=== PATIENT | female | born 2000 | race African-American/Black ===

== ENCOUNTER 2020-05-14 12:20 | Emergency (ER) | payer OTHER ==
[~2020-05-14] VITALS: Ht 157.5 cm; Wt 52.2 kg
--- NOTE | ~2020-05-14 | EMS ---
[facility] [address] [place] [address] EMS Patient Care Report Name: CANDIEMATTHEW Room #: DEP ZAYNAB Biswas#: [id number] Admission: 05/14/20 Attend Phys: Discharge: 05/14/20 Date of : [birth year] Report #: [id number] THIS REPORT FOR: //name// Report Transmitted: 05/14/2020 13:53 EMS Care Summary [facility] Incident [id number] @ 05/14/2020 11:43 Incident Location [address] [place] [address] Patient REGINA SCHREIBER Female, 19 Years 2000 Patient Address [address] [place] [id number] Patient History Asthma,Anemia, Patient Allergies Other drug allergy, Patient Medications None Reported, Chief Complaint knee pain after a fall Disposition Transported No Lights/[place] [facility] Reason Falls Transported To [facility] Narrative Pt is found sitting on the floor in the backroom of [employer] in no acute distress and in care of FD. Pt reports that she was 3-4 rungs up on the back stockroom ladder (approx 3 ft) putting away shoes when she slipped and fell [facility] [address] [place] [address] EMS Patient Care Report Name: MATTHEW SCHREIBER Room #: DEP True#: [id number] Admission: 05/14/20 Attend Phys: Discharge: 05/14/20 Date of : [birth year] Report #: [id number] backward. Pt c/o right knee pain and neck pain. Pt denies loss of consciousness and is alert and fully oriented. Pt denies use of blood thinners. Pt does state that she has improvement in knee pain due to ice pack. Pt is assisted to standing and is seated on cot where she is secured without incident. Pt is sheet lifted to ER bed without incident and report to RN. Initial Vitals @11:53P: 100,R: 18,BP: 113/82,Pain: 7/10,GCS: 15,SpO2: 100,Revised Trauma: 12, Assessments @12:05MENTAL:Person Oriented,Time Oriented,Place Oriented,Event Oriented,SKIN:HEENT:Head/Face: No Abnormalities,Neck/Airway: No Abnormalities,LUNG SOUNDS:General: No Abnormalities,ABDOMEN:General: No Abnormalities,PELVIS//GI:No Abnormalities,EXTREMITIES:Right Leg: Other,Left Arm: No Abnormalities,Right Arm: No Abnormalities,Left Leg: No Abnormalities,PULSE:NEURO:No Abnormalities, Impression Injury of Lower Leg Procedures @11:52Spinal Motion RestrictionResponse: UnchangedSucceeded@12:07Ice PackResponse: ImprovedSucceeded Timeline 11:40,Call Received 11:40,Psap Call 11:43,Dispatched 11:43,En Route 11:49,On Scene 11:51,At Patient 11:52,Spinal Motion Restriction,Response: UnchangedSucceeded, 11:53,BP: 113/82 M,PULSE: 100,RR: 18 R,SPO2: 100 Ox,ETCO2: ,BG: ,PAIN: 7,GCS: 15, 12:04,Depart Scene 12:07,Ice Pack,Response: ImprovedSucceeded, 12:15,At Destination 12:27,Call Closed Disclaimer [email or web address] Copyright 2020 [employer] This EMS Care Summary contains data elements from the applicable legal record (which may be displayed differently). It is designed to provide pertinent information for the following purposes: continuity of care, clinical quality, and state data reporting. The complete legal record is available to ED staff [address] [address] EMS Patient Care Report Name: MATTHEW SCHREIBER Room #: ANGEL Biswas#: [id number] Admission: 05/14/20 Attend Phys: Discharge: 05/14/20 Date of : [birth year] Report #: [id number] and administrators of the receiving hospital in ES's Patient Tracker. All data is provided "as is."
[2020-05-14] MEDS ORDERED: TRAMADOL 50 MG50 MG PO (13:04)
[2020-05-14 14:16] VITALS: BP 119/75
== END 2020-05-14 14:16 | disposition home or self-care (01) ==
LOC: ER 12:20
DX: S83.91XA Sprain of unspecified site of right knee, initial encounter (principal); S16.1XXA Strain of muscle, fascia and tendon at neck level, initial encounter; Z88.8 Allergy status to other drugs, medicaments and biological substances; Z91.010 Allergy to peanuts; W11.XXXA Fall on and from ladder, initial encounter; Y93.89 Activity, other specified; Y92.89 Other specified places as the place of occurrence of the external cause; Y99.8 Other external cause status

== ENCOUNTER 2021-05-30 00:15 | Emergency (ER) | payer OTHER ==
[~2021-05-30] VITALS: Ht 157.5 cm; Wt 53.5 kg
[~2021-05-30 00:15] MED LIST: TRAMADOL 50 MG50 MG PO
[2021-05-30] MEDS ORDERED: CEPHALEXIN500 MG PO (01:59)
[2021-05-30 02:29] VITALS: BP 120/60
== END 2021-05-30 02:30 | disposition home or self-care (01) ==
LOC: ER 00:15
DX: L02.411 Cutaneous abscess of right axilla (principal); Z88.1 Allergy status to other antibiotic agents; Z91.010 Allergy to peanuts